=== PATIENT | female | born 2000 | race Two or more races ===

== ENCOUNTER 2021-05-15 06:13 | Emergency (ER) | payer BC, SELFPAY ==
--- NOTE | ~2021-05-15 | US_ITS ---
EXAMINATION: US PELVIC OVARIAN DOPPLER US PELVIC AND TRANSVAGINAL CLINICAL INFORMATION: Sudden onset of right lower quadrant abdominal/pelvic pain. Rule out ovarian torsion/cyst. COMPARISON: None TECHNIQUE: Ultrasound of the pelvis is performed using both transabdominal and transvaginal transducers along with Doppler. Transvaginal imaging is performed due to inadequate visualization transabdominally. FINDINGS: The uterus is anteverted measuring 8.0 x 3.3 x 4.4 cm in length, from fundus to external cervical os, AP and transverse dimensions respectively. An endometrial stripe thickness is 0.8 cm. There is trilaminar appearance of the endometrium suggesting late proliferative/periovulatory phase of menstrual cycle. Trace fluid is noted in the cervical canal. Myometrial echotexture is homogeneous. No focal myometrial mass. The left ovary measures 1.6 x 2.9 x 1.9 cm with a volume of 4.6 mL. Multiple ovarian follicles are noted. The largest follicle measures 1.2 x 0.8 x 1.2 cm. As per technologist's notes unable to visualize discrete blood flow in the left ovary, likely due to the positioning of the ovary, posterior to the uterus. On submitted color Doppler images, some blood flow is noted in the left ovary. The grayscale appearance of the left ovary is normal. The right ovary measures 2.8 x 2.7 x 2.8 cm with a volume of 11.1 mL. Multiple ovarian follicles are noted with the largest one measuring 1.6 x 1.4 x 1.5 cm. Normal-appearing right intraovarian arterial and venous blood flow is documented. No evidence of adnexal mass or free fluid. US/US pelvic ovarian doppler IMPRESSION: No evidence of active right ovarian torsion. Normal grayscale appearance of the ovaries with multiple follicles, the largest follicular cyst in the right ovary measures 1.6 cm in maximum dimension. Otherwise unremarkable examination.
--- NOTE | ~2021-05-15 | CT_ITS ---
EXAMINATION: CT ABDOMEN AND PELVIS WITHOUT CONTRAST CLINICAL INFORMATION: Right lower quadrant pain. Right hydronephrosis on ultrasound. COMPARISON: Prior ultrasound of same day. TECHNIQUE: Multidetector volumetric imaging was performed from the superior aspect of the liver through the pubic symphysis. Sagittal and coronal reformatted images were obtained on the technologist's workstation. This CT examination was performed using dose optimization techniques as appropriate, variously including the following: *Automated exposure control *Adjustment of mA and/or kV according to patient size (this includes techniques or standardized protocols for targeted exams where dose is matched to indication/reason for exam; i.e. extremities or head) *Use of iterative reconstruction technique DLP: 504 mGy-cm FINDINGS: LUNG BASES: The visualized lung bases are unremarkable. LIVER, GALLBLADDER, AND BILIARY TREE: The liver is normal in size, shape, and attenuation. No focal hepatic lesion or biliary ductal dilatation is present. The gallbladder is unremarkable with no evidence of radiopaque gallstones, gallbladder wall thickening, or obvious pericholecystic inflammatory changes. PANCREAS: Unremarkable. SPLEEN: Unremarkable. ADRENAL GLANDS: Unremarkable. KIDNEYS AND URETERS: There is a calculus at the right UVJ measuring just over 0.2 cm in diameter. There is associated mild hydroureteronephrosis. The kidney shows prominent edema with perinephric fluid consistent with acute obstruction. No intrarenal calculi are demonstrated. The left kidney is unremarkable. BLADDER: Unremarkable. GASTROINTESTINAL TRACT: The stomach and duodenum are unremarkable. The small bowel and mesentery are unremarkable. The colon is unremarkable. The appendix is normal. ABDOMINAL WALL: No significant hernia is appreciated. LYMPH NODES: Normal. VASCULAR: Unremarkable. PELVIC VISCERA: The uterus and adnexa are unremarkable. There is no free fluid. OSSEOUS STRUCTURES: Unremarkable. CT/CT abdomen pelvis wo con IMPRESSION: 1. Obstructing 0.2 cm calculus right UVJ with hydroureteronephrosis, renal edema and perinephric fluid consistent with acute obstruction. No other calculi demonstrated. 2. Normal appendix. No other abnormality.
--- NOTE | ~2021-05-15 | US_ITS ---
EXAMINATION: US PELVIC OVARIAN DOPPLER US PELVIC AND TRANSVAGINAL CLINICAL INFORMATION: Sudden onset of right lower quadrant abdominal/pelvic pain. Rule out ovarian torsion/cyst. COMPARISON: None TECHNIQUE: Ultrasound of the pelvis is performed using both transabdominal and transvaginal transducers along with Doppler. Transvaginal imaging is performed due to inadequate visualization transabdominally. FINDINGS: The uterus is anteverted measuring 8.0 x 3.3 x 4.4 cm in length, from fundus to external cervical os, AP and transverse dimensions respectively. An endometrial stripe thickness is 0.8 cm. There is trilaminar appearance of the endometrium suggesting late proliferative/periovulatory phase of menstrual cycle. Trace fluid is noted in the cervical canal. Myometrial echotexture is homogeneous. No focal myometrial mass. The left ovary measures 1.6 x 2.9 x 1.9 cm with a volume of 4.6 mL. Multiple ovarian follicles are noted. The largest follicle measures 1.2 x 0.8 x 1.2 cm. As per technologist's notes unable to visualize discrete blood flow in the left ovary, likely due to the positioning of the ovary, posterior to the uterus. On submitted color Doppler images, some blood flow is noted in the left ovary. The grayscale appearance of the left ovary is normal. The right ovary measures 2.8 x 2.7 x 2.8 cm with a volume of 11.1 mL. Multiple ovarian follicles are noted with the largest one measuring 1.6 x 1.4 x 1.5 cm. Normal-appearing right intraovarian arterial and venous blood flow is documented. No evidence of adnexal mass or free fluid. US/US pelvic and transvaginal IMPRESSION: No evidence of active right ovarian torsion. Normal grayscale appearance of the ovaries with multiple follicles, the largest follicular cyst in the right ovary measures 1.6 cm in maximum dimension. Otherwise unremarkable examination.
--- NOTE | ~2021-05-15 | US_ITS ---
EXAMINATION: US ABDOMEN LIMITED CLINICAL INFORMATION: Regular quadrant pain.. COMPARISON: None TECHNIQUE: Real-time imaging of the right upper quadrant abdominal viscera. FINDINGS: PANCREAS: Normal. LIVER: Normal. The liver is normal in size. The liver contour is normal. Parenchymal echogenicity is normal. No focal hepatic lesion. There is no intrahepatic biliary duct dilatation seen. GALLBLADDER: The gallbladder is normally distended with no cholelithiasis. The gallbladder wall is thickened measuring up to 0.7 cm. No tenderness was elicited on pressure over the gallbladder. COMMON BILE DUCT: Normal in caliber measuring 0.3 cm in diameter. RIGHT KIDNEY: There is mild hydroureteronephrosis. There is a small amount of perinephric fluid suggesting acute obstruction. No intrarenal calculi are demonstrated. The kidney measures 10.8 cm in maximum dimension. FREE FLUID: None. RIGHT LOWER QUADRANT: ultrasound examination the right lower quadrant is nondiagnostic because of air and stool in bowel loops which could not be displaced with graded compression. Appendicitis cannot be excluded. US/US abdomen limited IMPRESSION: 1. Mild right hydroureteronephrosis with perinephric fluid suggesting acute obstruction. No intrarenal calculi are demonstrated. The distal ureter is not assessed on this examination. 2. Gallbladder wall thickening. No cholelithiasis. Negative sonographic [place] sign. 3. Nondiagnostic evaluation of the right lower quadrant for possible appendicitis.
[2021-05-15 06:21] VITALS: PULSE 72; RESP 22; TEMP 35.6; O2SAT 100; BMI 25.7
[2021-05-15 07:11] LABS: MANUAL DIFF FLAG NO
[2021-05-15 07:15] LABS: Basophils Percent Auto 0.4 % (0-2); Eosinophils Absolute Auto 0.2 X10*3/uL (0.0-0.4); Eosinophils Percent Auto 1.9 % (0-4); Hematocrit 36.1 % (37.0-47.0); Hemoglobin 12.2 g/dl (12.0-16.0); Imm Gran Abs Auto 0.03 X10*3/uL (0.00-0.03); Imm Gran Pct Auto 0.3 % (0.0-0.4); Lymphocytes Absolute Auto 2.6 X10*3/uL (1.2-4.9); Lymphocytes Percent Auto 27.5 % (20-40); Mean Corpuscular HGB Conc 33.8 g/dl (31.0-35.0); Mean Corpuscular Hemoglobin 30.7 pg (27.0-33.0); Mean Corpuscular Volume 90.7 fL (80.0-98.0); Mean Platelet Volume 9.8 fL (9.4-12.3); Monocytes Absolute Auto 0.5 X10*3/uL (0.1-1.2); Neutrophils Absolute Auto 6.2 x10*3/uL (2.0-8.3); Neutrophils Percent Auto 64.9 % (45-73); Platelet Count 258 X10*3/uL (160-400); Red Blood Count 3.98 X10*6/uL (4.20-5.50); Red Cell Distribution Width 12.2 % (11.0-16.0); White Blood Count 9.6 X10*3/uL (4.8-10.8)
[2021-05-15 07:29] LABS: Anion Gap 11 (12-20); Blood Urea Nitrogen 6 mg/dL (9-16); Calcium 7.9 mg/dL (8.4-10.2); Carbon Dioxide 22 mmol/L (22-29); Chloride 108 mmol/L (96-108); Creatinine Clr Calc Pharmacy 133.7; Estimated Glomerular Filt Rate > 60; Glucose Random 124 mg/dL (60-115); Potassium 2.9 mmol/L (3.3-5.1); Sodium 138 mmol/L (135-145)
--- NOTE | 2021-05-15 07:59 | ED.ABDPAIN ---
HPI - Abdominal Pain General Chief Complaint: Abdominal Pain Stated Complaint: Abdominal Pain Time Seen by Provider: 05/15/21 07:42 Source: patient Mode of arrival: ambulatory Limitations: no limitations History of Present Illness HPI narrative: 21-year-old female who presents emergency department for evaluation of sudden onset of right lower quadrant abdominal pain at 5:00 a.m. on the day of arrival. The patient states that she was feeling fine until she woke up this morning she developed sudden pain in her right lower quadrant of her abdomen. She states that the pain is a constant, pressure-like pain which is 10/10. She has associated nausea with no vomiting. She had 1 episode of loose diarrheal stool. She denied frequency, urgency or dysuria. She denied flank pain. This is a 1st episode of this type pain. She states her last menstrual period was on 04/29/2021 and this was a normal menstrual period for her. Related Data Allergies Allergy/AdvReac Type Severity Reaction Status Date / Time No Known Allergies Allergy Verified 05/15/21 07:52 Review of Systems Review of Systems Yes all other systems are reviewed and are negative Physical Exam Vital Signs: Vital Signs: Last Vital Signs Temp 96.1 F L 05/15/21 06:21 Pulse 72 05/15/21 06:21 Resp 22 H 05/15/21 06:21 Pulse Ox 100 05/15/21 06:21 Body Mass Index 25.7 Const: Other: Awake, alert, female, very pleasant cooperative, she does appear to be in distress secondary to her right-sided abdominal pain. HENMT: Head: Yes normal to inspection, Yes normocephalic and Yes atraumatic Ears: external ears normal General nose exam: Normal external nose present Face and sinus: Yes normal facial exam Mouth: Normal oral and palatal mucosa present Throat: Yes posterior oropharynx normal Eyes: General: appearance normal, both eyes and all related structures Pupils: Equal, round and reactive pupils present Neck: Neck: Yes normal visual inspection, Yes no lymphadenopathy, Yes trachea midline and Yes supple Chest: Chest palpation & inspection: normal inspection of the chest and normal palpation of entire chest wall Resp: Effort & Inspection: normal respiratory effort and able to speak in complete sentences Auscultation: clear to auscultation bilaterally Cardio: Rate: regular rate Rhythm: regular rhythm Heart sounds: S1 normal heart sound present, S2 normal heart sound present and no murmurs GI: Inspection: Yes normal to inspection Palpation (GI): Soft to palpation, Tenderness to palpation present (GI) in the RLQ ( Mild) and suprapubicly ( mild) and no guarding Auscultation: normal bowel sounds : General: Yes no CVA tenderness Back/Spine/Pelvis: Back: no CVA tenderness Skin: General skin exam: no rashes or lesions noted Neuro: Cranial nerves: Yes CN's II-XII intact bilaterally and Yes Equal, round and reactive pupils present Cognition (Neuro): normal cognition Motor exam (neuro): 5/5 motor strength present throughout Extrem: General: Yes normal to inspection Psych: Appearance: grossly normal Speech and movement: Normal speech and movement present Affect: normal affect Attitude: cooperative Thought process: Normal thought process present Thought content: Normal thought content present Course Course Course Narrative: 21-year-old female with no significant past medical history who presents emergency department for evaluation of sudden onset of right lower quadrant which began this morning at 5:00 a.m.. Vital signs did reveal an elevated respiratory rate of 22 otherwise was unremarkable. The patient did appear to be in distress secondary to her pain. The patient had mild right lower quadrant mild suprapubic tenderness. Differential includes was not limited to renal colic, ruptured ovarian cyst, hemorrhagic ovarian cyst, ovarian torsion, appendicitis, pancreatitis. I ordered a CBC, BMP, liver profile, lipase, urinalysis, urine test. I will start with ultrasounds to see if we can determine cause for pain, patient will get ultrasound pelvis to rule ovarian torsion also get an abdominal ultrasound to evaluate for hydronephrosis and hydroureter. Patient was ordered to get Toradol 30 mg IV for her pain Zofran 4 mg IV for her nausea. She will also be treated with normal saline x1 L. 1003: laboratory evaluation: Low potassium 2.9, elevated glucose 126, urinalysis positive for blood, microscopic 9 RBCs, 2 WBCs, 1+ bacteria, 1+ squamous cells. Abdominal ultrasound revealed right hydronephrosis with perinephric fluid. Patient feels significantly better after the above treatment. Patient most likely has right ureteral stone. This is her 1st renal colic event. I did order a CT scan to evaluate the size the stone into evaluated kidneys to see if she has more than 1 kidney stone pain . Patient does not require any further pain medications at this time. 12 30: CT scan of the abdomen pelvis with IV contrast revealed a 2 mm left ureteral stone at the UVJ with hydronephrosis and hydroureter. I did discuss this with the patient, the patient will be discharged home with urinary strainer. She was advised to take Tylenol ibuprofen for pain. She will be referred to our on-call urologist. She was given printed and verbal instructions a MDM - Abdominal Pain Lab Data Result diagrams: 05/15/21 07:08 05/15/21 07:08 Labs: Lab Results 05/15/21 05/15/21 05/15/21 Range/Units 07:08 07:08 08:29 WBC 9.6 (4.8-10.8) X10*3/uL RBC 3.98 L (4.20-5.50) X10*6/uL Hgb 12.2 (12.0-16.0) g/dl Hct 36.1 L (37.0-47.0) % MCV 90.7 (80.0-98.0) fL MCH 30.7 (27.0-33.0) pg MCHC 33.8 (31.0-35.0) g/dl RDW 12.2 (11.0-16.0) % Plt Count 258 (160-400) X10*3/uL MPV 9.8 (9.4-12.3) fL Immature Gran % (Auto) 0.3 (0.0-0.4) % Neut % (Auto) 64.9 (45-73) % Lymph % (Auto) 27.5 (20-40) % [place] % (Auto) 5.0 (2-11) % Eos % (Auto) 1.9 (0-4) % Baso % (Auto) 0.4 (0-2) % Lymph # (Auto) 2.6 (1.2-4.9) X10*3/uL [place] # (Auto) 0.5 (0.1-1.2) X10*3/uL Eos # (Auto) 0.2 (0.0-0.4) X10*3/uL Baso # (Auto) 0.0 (0.0-0.2) X10*3/uL Abs Immat Gran (auto) 0.03 (0.00-0.03) X10*3/uL Absolute Neuts (auto) 6.2 (2.0-8.3) x10*3/uL Absolute Nucleated RBC 0.000 (0.0-0.012) X10*3/uL Nucleated RBC % (auto) 0.0 (0.0-0.2) /100WBC Sodium 138 (135-145) mmol/L Potassium 2.9 L (3.3-5.1) mmol/L Chloride 108 (96-108) mmol/L Carbon Dioxide 22 (22-29) mmol/L Anion Gap 11 L (12-20) BUN 6 L (9-16) mg/dL Creatinine 0.66 (0.5-1.4) mg/dL Estim Creat Clear Calc 133.7 Estimated GFR > 60 Random Glucose 124 H (60-115) mg/dL Calcium 7.9 L (8.4-10.2) mg/dL Total Bilirubin 0.2 (0.0-1.0) mg/dL Direct Bilirubin < 0.2 (0.0-0.5) mg/dL AST 11 (5-31) U/L ALT 8 (0-31) U/L Alkaline Phosphatase 115 (39-117) U/L Total Protein 6.2 L (6.5-8.0) g/dL Albumin 3.7 (3.5-5.0) g/dL Lipase 20 (8-78) U/L Urine Color STRAW Urine Appearance HAZY Urine pH 8.0 (5.0-8.0) Ur Specific [place] 1.025 (1.005-1.025) Urine Protein NEG (NEG-TRACE) MG/DL Urine Glucose (UA) NEG (NEG) MG/DL Urine Ketones NEG (NEG) MG/DL Urine Blood 1+ H (NEG) Urine Nitrite NEG (NEG) Ur Leukocyte Esterase NEG (NEG) Urine RBC 5-9 H (0) /HPF Urine WBC 0-2 (0-4) /HPF Ur Squamous Epith Cells 1+ /LPF Amorphous Sediment 2+ /LPF Urine Bacteria 1+ /LPF Urine Test (NEGATIVE) 05/15/21 Range/Units 08:29 WBC (4.8-10.8) X10*3/uL RBC (4.20-5.50) X10*6/uL Hgb (12.0-16.0) g/dl Hct (37.0-47.0) % MCV (80.0-98.0) fL MCH (27.0-33.0) pg MCHC (31.0-35.0) g/dl RDW (11.0-16.0) % Plt Count (160-400) X10*3/uL MPV (9.4-12.3) fL Immature Gran % (Auto) (0.0-0.4) % Neut % (Auto) (45-73) % Lymph % (Auto) (20-40) % [place] % (Auto) (2-11) % Eos % (Auto) (0-4) % Baso % (Auto) (0-2) % Lymph # (Auto) (1.2-4.9) X10*3/uL [place] # (Auto) (0.1-1.2) X10*3/uL Eos # (Auto) (0.0-0.4) X10*3/uL Baso # (Auto) (0.0-0.2) X10*3/uL Abs Immat Gran (auto) (0.00-0.03) X10*3/uL Absolute Neuts (auto) (2.0-8.3) x10*3/uL Absolute Nucleated RBC (0.0-0.012) X10*3/uL Nucleated RBC % (auto) (0.0-0.2) /100WBC Sodium (135-145) mmol/L Potassium (3.3-5.1) mmol/L Chloride (96-108) mmol/L Carbon Dioxide (22-29) mmol/L Anion Gap (12-20) BUN (9-16) mg/dL Creatinine (0.5-1.4) mg/dL Estim Creat Clear Calc Estimated GFR Random Glucose (60-115) mg/dL Calcium (8.4-10.2) mg/dL Total Bilirubin (0.0-1.0) mg/dL Direct Bilirubin (0.0-0.5) mg/dL AST (5-31) U/L ALT (0-31) U/L Alkaline Phosphatase (39-117) U/L Total Protein (6.5-8.0) g/dL Albumin (3.5-5.0) g/dL Lipase (8-78) U/L Urine Color Urine Appearance Urine pH (5.0-8.0) Ur Specific [place] (1.005-1.025) Urine Protein (NEG-TRACE) MG/DL Urine Glucose (UA) (NEG) MG/DL Urine Ketones (NEG) MG/DL Urine Blood (NEG) Urine Nitrite (NEG) Ur Leukocyte Esterase (NEG) Urine RBC (0) /HPF Urine WBC (0-4) /HPF Ur Squamous Epith Cells /LPF Amorphous Sediment /LPF Urine Bacteria /LPF Urine Test NEGATIVE (NEGATIVE) Imaging Data CT abdomen pelvis without IV contrast: Radiologist's impression: EXAMINATION: CT ABDOMEN AND PELVIS WITHOUT CONTRAST? CLINICAL INFORMATION: Right lower quadrant pain. Right hydronephrosis on ultrasound.? COMPARISON: Prior ultrasound of same day.? TECHNIQUE: Multidetector volumetric imaging was performed from the superior aspect of the liver through the pubic symphysis. Sagittal and coronal reformatted images were obtained on the technologist's workstation.? This CT examination was performed using dose optimization techniques as appropriate, variously including the following: *Automated exposure control *Adjustment of mA and/or kV according to patient size (this includes techniques or standardized protocols for targeted exams where dose is matched to indication/reason for exam; i.e. extremities or head) *Use of iterative reconstruction technique DLP: 504 mGy-cm FINDINGS: LUNG BASES: The visualized lung bases are unremarkable.? LIVER, GALLBLADDER, AND BILIARY TREE: The liver is normal in size, shape, and attenuation. No focal hepatic lesion or biliary ductal dilatation is present. The gallbladder is unremarkable with no evidence of radiopaque gallstones, gallbladder wall thickening, or obvious pericholecystic inflammatory changes.? PANCREAS: Unremarkable.? SPLEEN: Unremarkable.? ADRENAL GLANDS: Unremarkable.? KIDNEYS AND URETERS: There is a calculus at the right UVJ measuring just over 0.2 cm in diameter. There is associated mild hydroureteronephrosis. The kidney shows prominent edema with perinephric fluid consistent with acute obstruction. No intrarenal calculi are demonstrated. The left kidney is unremarkable.? BLADDER: Unremarkable.? GASTROINTESTINAL TRACT: The stomach and duodenum are unremarkable. The small bowel and mesentery are unremarkable. The colon is unremarkable. The appendix is normal.? ABDOMINAL WALL: No significant hernia is appreciated.? LYMPH NODES: Normal. VASCULAR: Unremarkable. PELVIC VISCERA: The uterus and adnexa are unremarkable. There is no free fluid.? OSSEOUS STRUCTURES: Unremarkable.? CT/CT abdomen pelvis wo con IMPRESSION: ? 1. Obstructing 0.2 cm calculus right UVJ with hydroureteronephrosis, renal edema and perinephric fluid consistent with acute obstruction. No other calculi demonstrated. 2. Normal appendix. No other abnormality.? Dictated By: Haydee GILLETTE MD Signed By: <Electronically signed by Haydee GILLETTE MD in OV> 05/15/21 5052 Discharge Plan Discharge Clinical Impression: Calculus, ureteral, Renal colic on right side Patient Disposition: Home, Self-Care Instructions: Kidney Stones (ED), How to Strain Your Urine (ED) Additional Instructions: You have a 2 mm right ureteral stone the UVJ (you have small stone in the tube that connects the kidney to the bladder at the junction of for this to connects to the bladder-you have almost passed this stone). Strain your urine Increase your fluid intake Take ibuprofen 200 mg pills, 3 pills every 6 hours as needed for pain. Take Tylenol (acetaminophen) 500 mg pills, 2 pills every 4 to 6 hours as needed for pain. Follow-up with our on-call urologist in 7-10 days. Please return to the emergency department if your symptoms get worse or if you develop any symptoms that are concerning to you. Referrals: Giovani Tapia MD [Physician] - 10 days [facility] Past Medical History [facility] Narrative: Past medical history: None. Past surgical history: None. Social history: She denies tobacco use, she denies alcohol use, she denies drug use. Social History Social History Advance Directives: No Advance Directives Information Provided: No Patient : No
[2021-05-15] MEDS: 0.9 % Sodium Chloride 1,000 ML 999 ML IV (08:01)
[2021-05-15] MEDS: Ketorolac Tromethamine 15 MG/ML VIAL 30 MG IVPUSH (08:01)
[2021-05-15] MEDS: ondansetron HCL 4 MG/2 ML VIAL IVPUSH (08:02)
[2021-05-15 08:33] LABS: Albumin Level 3.7 g/dL (3.5-5.0); Aspartate Amino Transferase 11 U/L (5-31); Bilirubin Direct < 0.2 mg/dL (0.0-0.5); Bilirubin Total 0.2 mg/dL (0.0-1.0); Lipase 20 U/L (8-78); Total Protein 6.2 g/dL (6.5-8.0)
[2021-05-15 08:34] LABS: UPreg QC Valid YES
[2021-05-15 08:35] LABS: Urine Pregnancy NEGATIVE (NEGATIVE)
[2021-05-15 08:41] LABS: Appearance Urine HAZY; Color Urine STRAW; Glucose Urine UA NEG (NEG); Leukocyte Esterase Urine NEG (NEG); Nitrite Urine NEG (NEG); Specific Gravity - Urine 1.025 (1.005-1.025); UACC Culture Trigger NO; Urine Blood 1+ (NEG); Urine Ketones NEG (NEG); Urine Protein NEG (NEG-TRACE)
[2021-05-15 08:43] LABS: Alanine Aminotransferase 8 U/L (0-31); Alkaline Phosphatase 115 U/L (39-117)
[2021-05-15 08:47] LABS: Amorphous Sediment Urine 2+ /LPF; Bacteria Urine 1+ /LPF; Squamous Epithelial Cell Urine 1+ /LPF; WBC Urine 0-2 /HPF (0-4)
== END 2021-05-15 12:58 | disposition home or self-care (01) ==
PROVIDERS: Emergency Provider Emergency Medicine Emergency Medical Services
DX: N13.2 Hydronephrosis with renal and ureteral calculous obstruction (principal)
CPT/HCPCS: 36415; 74176; 76705; 76830; 76856; 80048; 80076; 81001; 81025; 83690; 85025; 93975; 96361; 96374; 96375; 99284; J1885; J2405